=== PATIENT | male | born 1970 | race Caucasian/White ===

== ENCOUNTER → 2020-07-15 | Outpatient (CLI) | payer OTHER ==
[~2020-07-15] MED LIST: IOHEXOL 350 MG/ML 100 ML VIAL. IV ONE
[2020-07-15 08:35] LABS: CREATININE 1.2 mg/dL (0.7-1.3); GFR 63.8
--- NOTE | 2020-07-15 09:28 | RAD ---
EXAMINATION: CTA Chest With IV contrast INDICATION:50 years, Male, history of pulmonary embolism. Follow-up examination. COMPARISON: None. TECHNIQUE: Spiral CTA was obtained from the jugular notch through the posterior costophrenic recess. 3-D MIPS, sagittal and coronal reformats were obtained. Exposure: One or more of the following individualized dose reduction techniques were utilized for thi s examination: 1. Automated exposure control 2. Adjustment of the mA and/or kV according to patient size 3. Use of iterative reconstruction technique. FINDINGS: LUNGS/PLEURA: Central airways are patent. No focal consolidation, pleural effusion or pneumothorax. A 3 mm fissure based pulmonary nodule in the right middle lobe (series 4 image 74). There is a [address] eural-based nodule in the left lower lobe (series 4 image 118). MEDIASTINUM: No pathologic mediastinal or hilar adenopathy. The thoracic aorta and pulmonary arteries are normal in caliber. The study is diagnostic for pulmonary embolism to the level of segmental bran ches due to contrast bolus timing. Thin linear nonocclusive filling defects seen in the segmental rig ht upper and lobar right lower lobes pulmonary arteries, consistent with chronic emboli. No CT eviden ce of acute pulmonary embolism. The heart is normal in size. No pericardial effusion. No detectable c alcified coronary atherosclerosis. The visualized thyroid and the esophagus are unremarkable. AXILLA/SOFT TISSUE: No supraclavicular or axillary adenopathy. Regional soft tissues are within wai l limits. UPPER ABDOMEN: Cholelithiasis. BONES: No evidence of acute fractures or aggressive osseous lesions. IMPRESSION: The study is diagnostic for pulmonary embolism to the level of segmental branches due to contrast keyana us timing. 1. Few tiny nonocclusive chronic emboli in the segmental right upper and lobar right lower lobes pulm onary arteries. No acute pulmonary embolism. 2. Few sub-5 mm pulmonary nodules in both lungs. High-risk patient, consider 12 months follow-up with CT chest. Electronically signed by: Nadeen Jennings MD (07/15/2020 9:26 AM) [id number]
--- NOTE | 2020-07-15 09:37 | RAD ---
EXAMINATION: US BILATERAL LOWEREXTREMITY VENOUS DOPPLER INDICATION: Reason: PE, LEG PAIN, HX OF DVT / Spl. Instructions: / History: COMPARISONS: None TECHNIQUE: Grayscale, color and spectral Doppler evaluation of the Bilateral lower extremity deep gavin ous system(s) was performed. FINDINGS: Bilateral common femoral, left femoral and left popliteal veins are normally compressible and demonst rate normally directed and appropriately phasic flow with augmentation. Chronic appearing partially o cclusive thrombi in the distal right femoral, popliteal, peroneal and posterior tibial veins in the p roximal calf. Normal flow is present within the saphenofemoral junctions and deep femoral veins in the proximal thi ghs and the left posterior tibial and peroneal veins in the proximal calf. IMPRESSION: 1. Chronic-appearing partially occlusive thrombi in the distal right femoral, right popliteal veins a s well as right peroneal and posterior tibial veins in the proximal calf. 2. No acute deep venous thrombosis in the left lower extremity. Electronically signed by: Nadeen Jennings MD (07/15/2020 9:35 AM) [id number]
== END ==
LOC: CT 07:50
PROVIDERS: ATTEND Family Medicine
DX: I82.531 Chronic embolism and thrombosis of right popliteal vein (principal); I82.511 Chronic embolism and thrombosis of right femoral vein; I26.99 Other pulmonary embolism without acute cor pulmonale; R91.1 Solitary pulmonary nodule; K80.20 Calculus of gallbladder without cholecystitis without obstruction
CPT/HCPCS: 36415; 71275; 82565; 93970; Q9967

== ENCOUNTER 2020-07-30 12:51 | Emergency (ER) | payer OTHER ==
[~2020-07-30] VITALS: Ht 188 cm; Wt 142.7 kg
[2020-07-30] MEDS ORDERED: cefTRIAXone IM 1 GM VIAL IM ONE (13:15)
[2020-07-30] MEDS ORDERED: SMZ/TMP 800/160MG TABLET. PO ONE (13:15)
[2020-07-30] MEDS ORDERED: ALBU2.5V8 IH (13:23)
[2020-07-30] MEDS ORDERED: CEPH500T PO (13:23)
[2020-07-30] MEDS ORDERED: SULF1TAB24 PO (13:23)
--- NOTE | 2020-07-30 13:23 | PHYS DOC ---
Past History Past Medical History: Other Alcohol Use: None General Adult EDM: Chief Complaint: ABSCESS HPI: HPI: 50-year-old male presents with mass lateral to the scrotum. He is concerned about an abscess. He just noticed it yesterday. Its about 1 cm in diameter and tender. He believes the skin around it is red and warm. He has had skin infections in the past. He is not sure if they were MRSA or not. He has had abscesses with them. Patient denies any drainage from this area. He is in a transitional [facility] situation [facility] so he cannot get antibiotics same day. Patient denies fever or chills. His other complaint is that he has a history of asthma and feels like he might be wheezing. He does not have an inhaler. He denies significant shortness of breath. Review of Systems: Review of Systems: Constitutional: Denies fever or chills Eyes: Denies change in visual acuity HENT: Denies nasal congestion or sore throat Respiratory: Mild shortness of breath, wheezing Cardiovascular: Denies chest pain or edema GI: Denies abdominal pain, nausea, vomiting, bloody stools or diarrhea : Denies dysuria Musculoskeletal: Denies back pain or joint pain Integument: Nodule left groin Neurologic: Denies headache, focal weakness or sensory changes Endocrine: Denies polyuria or polydipsia Lymphatic: Denies swollen glands Psychiatric: Denies depression or anxiety Allergies: Allergies: Allergies Coded Allergies Type Severity Reaction Last Updated Verified aspirin Allergy Unknown 07/15/20 Yes Physical Exam: PE: Constitutional: Well developed, well nourished, morbidly obese, no acute distress, non-toxic appearance. [] HENT: Normocephalic, atraumatic, bilateral external ears normal, oropharynx moist, no oral exudates, nose normal. [] Eyes: PERRLA, EOMI, conjunctiva normal, no discharge. [] Neck: Normal range of motion, no tenderness, supple, no stridor. [] Cardiovascular: Heart rate regular rhythm, no murmur [] Lungs & Thorax: Bilateral breath sounds with end expiratory wheezes at the base [] Abdomen: Bowel sounds normal, soft, no tenderness, no masses, no pulsatile masses. [] Skin: 1 cm firm nodule of the left groin with surrounding erythema and warmth consistent with cellulitis. No drainage or fluctuant abscess. [] Back: No tenderness, no CVA tenderness. [] Extremities: No tenderness, no cyanosis, no clubbing, ROM intact, no edema. [] Neurologic: Alert and oriented X 3, normal motor function, normal sensory function, no focal deficits noted. [] Psychologic: Affect normal, judgement normal, mood normal. [] Current Patient Data: Vital Signs: Vital Signs Date Time Temp Pulse Resp B/P (MAP) Pulse Ox O2 Delivery O2 Flow Rate FiO2 07/30/20 12:59 97.2 84 18 138/100 (113) 96 Room Air EKG: EKG: [] Radiology/Procedures: Radiology/Procedures: [] Heart Score: C/O Chest Pain: N/A Risk Factors: Risk Factors: DM, Current or recent (<one month) smoker, HTN, HLP, family history of CAD, obesity. Risk Scores: Score 0 - 3: 2.5% MACE over next 6 weeks - Discharge Home Score 4 - 6: 20.3% MACE over next 6 weeks - Admit for Clinical Observation Score 7 - 10: 72.7% MACE over next 6 weeks - Early Invasive Strategies Course & Med Decision Making: Course & Med Decision Making Pertinent Labs and Imaging studies reviewed. (See chart for details) Given the patient's situation was difficult for him to get medications quickly, we will give him an albuterol inhaler in the ED, 1 g of Rocephin IM, 2 Bactrim DS tablets. I will follow this up with 7 days of Keflex and Bactrim prescriptions. He is stable for discharge at this time. [] Dragon Disclaimer: Dragzoe Disclaimer: This electronic medical record was generated, in whole or in part, using a voice recognition dictation system. Departure Departure: Impression: Primary Impression: Cellulitis of left groin Additional Impression: Asthma Qualified Codes: J45.20 - Mild intermittent asthma, uncomplicated Disposition: HOME / SELF CARE / HOMELESS Condition: STABLE Referrals: ASHLEY THOMPSON MD (PCP) Patient Instructions: Asthma, Adult, Nxpt-fo-Lxhc, Cellulitis, Rgtd-kc-Hqtw Scripts Sulfamethoxazole/Trimethoprim (BACTRIM DS TABLET) 1 Each Tablet 1 TAB PO BID for cellulitis for 7 Days, #14 TAB 0 Refills Prov: BRICE CAMARGO DO 07/30/20 Albuterol Sulfate (PROAIR HFA INHALER) 8.5 Gm Hfa.aer.ad 2 PUFF IH PRN Q4-6HRS PRN for wheezing for 21 Days, #1 INHALER 0 Refills Prov: BRICE CAMARGO DO 07/30/20 Cephalexin (CEPHALEXIN) 500 Mg Tablet 1 TAB PO TID for cellulitis for 7 Days, #21 TAB Prov: BRICE CAMARGO DO 07/30/20 BRICE CAMARGO DO Jul 30, 2020 13:23
[2020-07-30] MEDS ORDERED: ALBUTEROL SULFATE 8GM INHALER. INH ONE (13:30)
[2020-07-30 13:43] VITALS: BP 141/88
== END 2020-07-30 13:44 | disposition home or self-care (01) ==
LOC: ER 12:51
DX: L03.314 Cellulitis of groin (principal); J45.20 Mild intermittent asthma, uncomplicated; Z88.6 Allergy status to analgesic agent
CPT/HCPCS: 94640; 96372; 99283; J0696; 94664

== ENCOUNTER 2020-09-04 12:55 | Emergency (ER) | payer OTHER ==
[~2020-09-04] VITALS: Ht 188 cm; Wt 142.7 kg
[~2020-09-04 12:55] MED LIST changes: +ALBU2.5V8 IH; +CEPH500T PO; -IOHEXOL 350 MG/ML 100 ML VIAL. IV ONE; +SULF1TAB24 PO
[2020-09-04 14:22] LABS: BASO % 1 % (0-3); EOS # 0.1 x10^3/uL (0.0-0.7); EOS % 3 % (0-3); HEMATOCRIT 40.6 % (39.0-53.0); HEMOGLOBIN 13.5 g/dL (13.0-17.5); LYMPH # 1.3 x10^3/uL (1.0-4.8); LYMPH % 22 % (24-48); MEAN CORPUSCULAR HEMOGLOBIN 30 pg (25-35); MEAN CORPUSCULAR HGB CONC 33 g/dL (31-37); MEAN CORPUSCULAR VOLUME 90 fL (79-100); MONO # 0.4 x10^3/uL (0.0-1.1); MONO % 6 % (0-9); NEUT % 69 % (31-73); PLATELET COUNT 156 x10^3/uL (140-400); RED BLOOD COUNT 4.49 x10^6/uL (4.30-5.70); RED CELL DISTRIBUTION WIDTH 13.2 % (11.5-14.5); WHITE BLOOD COUNT 5.9 x10^3/uL (4.0-11.0)
[2020-09-04 14:45] LABS: CALCIUM 8.6 mg/dL (8.5-10.1); GFR 78.8; POTASSIUM 3.8 mmol/L (3.5-5.1)
[2020-09-04 14:57] LABS: ALBUMIN 3.4 g/dL (3.4-5.0); MAGNESIUM 1.8 mg/dL (1.8-2.4); TOTAL BILIRUBIN 0.5 mg/dL (0.2-1.0); TOTAL PROTEIN 6.8 g/dL (6.4-8.2)
--- NOTE | 2020-09-04 14:57 | EKG ---
[address] [address] Test Date: 2020-09-04 Test Time: 13:33:03 Pat Name: TAMANNA ERICKSON Department: Room: Gender: M [employer] Teacher: MIGUEL : 1970 Requested By: MATTHIAS BECKER Order Number: [id number] Reading MD: Measurements Intervals [place] Rate: 74 P: 36 IN: 178 QRS: 73 QRSD: 90 T: 106 QT: 372 QTc: 413 Interpretive Statements SINUS RHYTHM R-S TRANSITION ZONE IN V LEADS DISPLACED TO THE LEFT T ABNORMALITY IN HIGH LATERAL LEADS ABNORMAL ECG RI6.02 No previous ECG available for comparison
--- NOTE | 2020-09-04 14:59 | RAD ---
XR CHEST 1V History: Reason: CHEST PAIN / Spl. Instructions: / History: Comparison: None. Findings: No consolidation or pleural effusion. Normal heart size. No pneumothorax. Impression: 1. No acute cardiopulmonary process. Electronically signed by: Eren Rankin DO (09/04/2020 2:56 PM) [id number]
[2020-09-04] MEDS ORDERED: IOHEXOL 350 MG/ML 100 ML VIAL. IV ONE (15:45)
--- NOTE | 2020-09-04 15:48 | PHYS DOC ---
Past History Past Medical History: Diabetes, DVT, Hypertension, Other Additional Past Medical Histor: DVT, PE, epilepsy, thyroid disease, BPH Past Surgical History: Appendectomy, Tonsillectomy Additional Past Surgical Histo: colonoscopy Alcohol Use: None General Adult EDM: Chief Complaint: CHEST PAIN HPI: HPI: 50-year-old male past medical history of obesity, diabetes, hypertension, hyperlipidemia, hypothyroidism, asthma, DVT and PE on Xarelto, presents the ED with complaints of shortness of breath that occurs with deep breaths, started last night but is progressively getting worse, states he feels short of breath now with every breath. Initially thought his symptoms were heartburn. Symptoms do not resemble his typical asthma. 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 Reports he has never been to this hospital before. Reports history of Covid in February 2020. Received J and J vaccine in April or 2020. Former methamphetamine use, 20 years ago. Denies any cocaine abuse. States he has chronic postnasal drip and coughing from his postnasal drip that he is supposed to be seen by an advanced research programs director. No personal or family history of AAA, AAD, CTD (ehlos danlos or marfans), cardiac arrhythmias (need for AICD), or sudden or unexplainable (under 50 years of age or with exertion). Review of Systems: Review of Systems: Constitutional: Denies fever or chills Eyes: Denies change in visual acuity HENT: Denies nasal congestion or sore throat Respiratory: Denies productive cough or hemoptysis Cardiovascular: Denies chest pain or edema GI: Denies nausea, vomiting, bloody stools or diarrhea : Denies dysuria or hematuria Musculoskeletal: Denies back pain or joint pain Integument: Denies rash or diaphoresis Neurologic: Denies headache, focal weakness or sensory changes Endocrine: Denies polyuria or polydipsia Lymphatic: Denies swollen glands Psychiatric: Denies depression or anxiety Allergies: Allergies: Allergies Coded Allergies Type Severity Reaction Last Updated Verified aspirin Allergy Unknown 09/04/20 Yes Physical Exam: PE: Constitutional: Well developed, well nourished, no acute distress, non-toxic appearance, hypertensive HENT: Normocephalic, atraumatic, Eyes: EOMI, conjunctiva normal, no discharge. Neck: Normal range of motion, supple, Cardiovascular: S1/2 present, regular rhythm Lungs & Thorax: Speaking in full sentences, bilateral equal chest rise, no tachypnea or increased work of breathing Abdomen: soft, no tenderness, Skin: Warm, dry, no erythema, no rash. [] Back: No tenderness, no CVA tenderness. [] Extremities: No tenderness, no cyanosis, no lower extremity edema Neurologic: Alert and oriented X 3, normal motor function, normal sensory function, no focal deficits noted. [] Psychologic: Affect normal, judgement normal, mood normal. [] Current Patient Data: Labs: Laboratory Tests Test 09/04/20 14:01 White Blood Count 5.9 x10^3/uL (4.0-11.0) Red Blood Count 4.49 x10^6/uL (4.30-5.70) Hemoglobin 13.5 g/dL (13.0-17.5) Hematocrit 40.6 % (39.0-53.0) Mean Corpuscular Volume 90 fL (79-100) Mean Corpuscular Hemoglobin 30 pg (25-35) Mean Corpuscular Hemoglobin Concent 33 g/dL (31-37) Red Cell Distribution Width 13.2 % (11.5-14.5) Platelet Count 156 x10^3/uL (140-400) Neutrophils (%) (Auto) 69 % (31-73) Lymphocytes (%) (Auto) 22 % (24-48) L Monocytes (%) (Auto) 6 % (0-9) Eosinophils (%) (Auto) 3 % (0-3) Basophils (%) (Auto) 1 % (0-3) Neutrophils # (Auto) 4.0 x10^3uL (1.8-7.7) Lymphocytes # (Auto) 1.3 x10^3/uL (1.0-4.8) Monocytes # (Auto) 0.4 x10^3/uL (0.0-1.1) Eosinophils # (Auto) 0.1 x10^3/uL (0.0-0.7) Basophils # (Auto) 0.0 x10^3/uL (0.0-0.2) Sodium Level 142 mmol/L (136-145) Potassium Level 3.8 mmol/L (3.5-5.1) Chloride Level 106 mmol/L (98-107) Carbon Dioxide Level 29 mmol/L (21-32) Anion Gap 7 (6-14) Blood Urea Nitrogen 14 mg/dL (8-26) Creatinine 1.0 mg/dL (0.7-1.3) Estimated GFR (Cockcroft-Gault) 78.8 BUN/Creatinine Ratio 14 (6-20) Glucose Level 186 mg/dL (70-99) H Calcium Level 8.6 mg/dL (8.5-10.1) Magnesium Level 1.8 mg/dL (1.8-2.4) Total Bilirubin 0.5 mg/dL (0.2-1.0) Aspartate Amino Transferase (AST) 15 U/L (15-37) Alanine Aminotransferase (ALT) 27 U/L (16-63) Alkaline Phosphatase 87 U/L (46-116) Troponin I Quantitative < 0.017 ng/mL (0-0.055) ZO-Hjl-O-Type Natriuretic Peptide 104 pg/mL (0-124) Total Protein 6.8 g/dL (6.4-8.2) Albumin 3.4 g/dL (3.4-5.0) Albumin/Globulin Ratio 1.0 (1.0-1.7) Lipase 67 U/L (73-393) L Vital Signs: Vital Signs Date Time Temp Pulse Resp B/P (MAP) Pulse Ox O2 Delivery O2 Flow Rate FiO2 09/04/20 13:24 100.1 75 20 229/128 97 Room Air EKG: EKG: Sinus rhythm 74 bpm, no axis deviation, normal intervals, T wave inversion lead I, no ST elevation or ST depression Radiology/Procedures: Radiology/Procedures: IMAGING REPORT Signed PATIENT: TAMANNA ERICKSON ACCOUNT: [id number] : 1970 LOCATION: ER AGE: 50 SEX: M EXAM STATUS: REG ER ORD. PHYSICIAN: MATTHIAS BECKER DO REASON: CHEST PAIN PROCEDURE: PORTABLE CHEST 1V XR CHEST 1V History: Reason: CHEST PAIN / Spl. Instructions: / History: Comparison: None. Findings: No consolidation or pleural effusion. Normal heart size. No pneumothorax. Impression: 1. No acute cardiopulmonary process. Electronically signed by: Eren Rankin DO (09/04/2020 2:56 PM) [id number] DICTATED AND SIGNED BY: ERNE RANKIN DO DATE: 09/04/20 1455 CC: ASHLEY THOMPSON MD; MATTHIAS BECKER DO ~MTH0 0 IMAGING REPORT Signed PATIENT: TAMANNA ERICKSON ACCOUNT: [id number] : 1970 LOCATION: ER AGE: 50 SEX: M EXAM STATUS: REG ER ORD. PHYSICIAN: MATTHIAS BECKER DO REASON: sob, chest pain, r/o pe 100mls omni 350 PROCEDURE: CT ANGIOGRAPHY CHEST Exam: CT of chest with contrast INDICATION: Shortness of breath, chest TECHNIQUE: Sequential axial images through the chest obtained following the administration of 100 mL of Omni 350 IV contrast. Sagittal and coronal reformatted images were reconstructed from the axial data and reviewed. Exposure: One or more of the following in the visualized dose reduction techniques were utilized for this examination: 1. Automated exposure control 2. Adjustment of the MA and/or KV according to patient size 3. Use of iterative of reconstructive technique Comparisons: Chest x-ray same day, CTA chest 07/15/2020 FINDINGS: Visualized portions of the thyroid are unremarkable. No enlarged mediastinal lymph nodes are identified. Heart size is normal. No pericardial effusion. Thoracic aorta has a normal course and caliber. Pulmonary artery is nonenlarged. No pulmonary embolus identified within the main, lobar or segmental pulmonary arteries. Airways are patent. No consolidation or pneumothorax. No suspicious lung nodules. No pleural effusion or thickening. Cholelithiasis. No suspicious osseous lesions or acute fractures. IMPRESSION: No pulmonary embolus identified within the main, lobar or segmental pulmonary arteries. Electronically signed by: Mike Felton MD (09/04/2020 4:06 PM) [facility] DICTATED AND SIGNED BY: MIKE FELTON MD DATE: 09/04/20 1558 CC: ASHLEY THOMPSON MD; MATTHIAS BECKER DO ~MTH0 0 Heart Score: C/O Chest Pain: No HEART Score for Chest Pain: HEART Score for Chest Pain Response (Comments) Value History Slighlty/Non-Suspicious 0 ECG Normal 0 Age >45 - < 65 1 Risk Factors >3 Risk Factors or Hx CAD 2 Troponin < Normal Limit 0 Total 3 Risk Factors: Risk Factors: DM, Current or recent (<one month) smoker, HTN, HLP, family history of CAD, obesity. Risk Scores: Score 0 - 3: 2.5% MACE over next 6 weeks - Discharge Home Score 4 - 6: 20.3% MACE over next 6 weeks - Admit for Clinical Observation Score 7 - 10: 72.7% MACE over next 6 weeks - Early Invasive Strategies Course & Med Decision Making: Course & Med Decision Making Pertinent Labs and Imaging studies reviewed. (See chart for details) Will discharge home with strict ED return precautions were given for []. Encouraged urgent outpatient follow-up with PMD and cardiology. Life- threatening processes were considered but are low suspicion at this time, given history, physical exam and ED workup. Pt was educated on all prescription medications and adverse effects. All patient's questions were answered and pt was stable at time of discharge. Life/limb-threatening differential includes but is not limited to, acute myocardial infarction, aortic dissection, congestive heart failure, esophageal injury including rupture, surgical abdomen, arrhythmia, cardiomyopathy, myocarditis, pericarditis, peptic ulcer disease, pneumomediastinum, pneumonia, pneumothorax, pulmonary embolus, unstable angina, rib fracture, contusion, pericardial tamponade or effusion, traumatic injury including mediastinal hemorrhage or hematoma, or pulmonary contusion. I have spoken with the patient and/or caregivers. I explained the patient's condition, diagnoses and treatment plan based on the information available to me at this time. I have answered the patient and/or caregiver's questions and addressed any concerns. The patient and/or caregivers have a good understanding of patient's diagnosis, condition and treatment plan as can be expected at this point. Vital signs have been stable. Patient's condition is stable and appropriate for discharge from the emergency department. Patient will pursue further outpatient evaluation with primary care physician or other designated or consulting physician as outlined in the discharge instructions. The patient and/or caregivers are agreeable to this plan of care and follow-up instructions have been explained in detail. The patient and/or caregivers have received these instructions in written form and have expressed an understanding of the discharge instructions. The patient and/or caregivers are aware that any significant change of condition or worsening of symptoms should prompt immediate return to this or the closest emergency department or call to 911. Dick Disclaimer: Dick Disclaimer: This electronic medical record was generated, in whole or in part, using a voice recognition dictation system. Departure Departure: Impression: Primary Impression: Pleuritic chest pain Disposition: HOME / SELF CARE / HOMELESS Condition: STABLE Referrals: ASHLEY THOMPSON MD (PCP) within 1 week Patient Instructions: Chest Pain (Nonspecific) Additional Instructions: FOLLOW UP WITH CARDIOLOGY: FOR DEFINITIVE MANAGEMENT of chest pain [facility] [address] [place] [address] OR [facility] [address] [address] EMERGENCY DEPARTMENT GENERAL DISCHARGE INSTRUCTIONS Thank you for coming to [facility] (ED) today and trusting us with you care. We trust that you had a positivie experience in our Emergency Department. If you wish to speak to the department management, you may call the director at [phone]. YOUR FOLLOW UP INSTRUCTIONS ARE FOLLOWS: 1. Do you have a private Doctor? If you do not have a private doctor, please ask for a resource list of physicians or clinics that may be able to assist you with follow up care. 2. The Emergency Physician has interpreted your x-rays. The X-Ray specialist will also review them. If there is a change in the findings, you will be notified in 48 hours when at all possible. 3. A lab test or culture has been done, your results will be reviewed and you will be notified if you need a change in treatment. ADDITIONAL INSTRUCTIONS AND INFORMATION: 1. Your care today has been supervised by a physician who is specially trained in emergency care. Many problems require more than one evaluation for a complete diagnosis and treatment. We recommend that you schedule your follow up appointment as recommended to ensure complete treatment of you illness or injury. If you are unable to obtain follow up care and continue to have a problem, or if your condition worsens, we recommend that you return to the ED. 2. We are not able to safely determine your condition over the phone nor are we able to give sound medical advice over the phone. For these safety reasons, if you call for medical advice we will ask you to come to the ED for further evaluation. 3. If you have any questions regarding these discharge instructions please call the ED at [phone]. SAFETY INFORMATION: In the interest of safety, wellness, and injury prevention; we encourage you to wear your sealbelt, if you smoke; quite smoking, and we encourage family to use a protective helmet for bicycling and other sporting events that present an increased risk for head injury. IF YOUR SYMPTOMS WORSEN OR NEW SYMPTOMS DEVELOP, OR YOU HAVE CONCERNS ABOUT YOUR CONDITION; OR IF YOUR CONDITION WORSENS WHILE YOU ARE WAITING FOR YOUR FOLLOW UP APPOINTMENT; EITHER CONTACT YOUR PRIMARY CARE DOCTOR, THE PHYSICIAN WHOSE NAME AND NUMBER YOU WERE GIVEN, OR RETURN TO THE ED IMMEDIATELY. [facility]ENTER[facility]THIAS DO Sep 04, 2020 15:48
[2020-09-04] MEDS ORDERED: CONTRAST GIVEN. MC PRN (16:00)
--- NOTE | 2020-09-04 16:09 | RAD ---
Exam: CT of chest with contrast INDICATION: Shortness of breath, chest TECHNIQUE: Sequential axial images through the chest obtained following the administration of 100 mL of Omni 350 IV contrast. Sagittal and coronal reformatted images were reconstructed from the axial da ta and reviewed. Exposure: One or more of the following in the visualized dose reduction techniques were utilized for this examination: 1. Automated exposure control 2. Adjustment of the MA and/or KV according to patient size 3. Use of iterative of reconstructive technique Comparisons: Chest x-ray same day, CTA chest 07/15/2020 FINDINGS: Visualized portions of the thyroid are unremarkable. No enlarged mediastinal lymph nodes are identifi ed. Heart size is normal. No pericardial effusion. Thoracic aorta has a normal course and caliber. Pulmon lana artery is nonenlarged. No pulmonary embolus identified within the main, lobar or segmental pulmon lana arteries. Airways are patent. No consolidation or pneumothorax. No suspicious lung nodules. No pleural effusion or thickening. Cholelithiasis. No suspicious osseous lesions or acute fractures. IMPRESSION: No pulmonary embolus identified within the main, lobar or segmental pulmonary arteries. Electronically signed by: Mike Fuller MD (09/04/2020 4:06 PM) [facility]
[2020-09-04 17:59] VITALS: BP 105/62
== END 2020-09-04 18:21 | disposition home or self-care (01) ==
LOC: ER 12:55
DX: R07.89 Other chest pain (principal); E11.9 Type 2 diabetes mellitus without complications; I10 Essential (primary) hypertension; J45.909 Unspecified asthma, uncomplicated; Z88.6 Allergy status to analgesic agent
CPT/HCPCS: 36415; 71045; 71275; 80053; 83690; 83735; 83880; 84484; 85025; 93005; 99285; Q9967

== ENCOUNTER → 2020-10-21 | Outpatient (CLI) | payer OTHER ==
--- NOTE | 2020-10-21 16:19 | RAD ---
Exam: Right Upper Quadrant Ultrasound 10/21/2020 10:53 AM Indication: Reason: RUQ PAIN / Spl. Instructions: / History: Technique: Multiple realtime grayscale sonographic images were obtained over the abdomen. Static imag es were submitted for interpretation. Comparisons: None Findings: The pancreas is poorly visualized. Cholelithiasis noted within the gallbladder. No evidence of wall t hickening or pericholecystic fluid is identified. The liver is top normal in size measuring 18 cm anahi gitudinally. Hepatic echotexture is mildly coarsened. No focal hepatic lesions are identified. No james iary dilatation is seen. Common bile duct is nondilated at 2 mm. The right kidney is unremarkable in appearance measuring 11 cm in length. Visualized IVC is unremarkable. Portal vein appears be patent w ith flow in the normal direction. IMPRESSION: 1. Cholelithiasis without evidence of acute cholecystitis. 2. Borderline hepatomegaly with coarsening of hepatic echotexture Electronically signed by: Diego Burton MD (10/21/2020 4:17 PM) [id number]
== END ==
LOC: US 10:50
PROVIDERS: ATTEND Family Medicine
DX: K80.20 Calculus of gallbladder without cholecystitis without obstruction (principal); R16.0 Hepatomegaly, not elsewhere classified
CPT/HCPCS: 76705